=== PATIENT | male | born 1975 | race Caucasian/White ===

== ENCOUNTER 2018-12-02 19:18 | Emergency (ER) | payer OTHER ==
[~2018-12-02] VITALS: Ht 182.8 cm; Wt 90.7 kg
--- NOTE | ~2018-12-02 | EKG ---
[place], [place] ELECTROCARDIOGRAM REPORT NAME: JORDAN ROSARIO UNIT #: [id number] ROOM: [facility] BIRTHDATE: [birth year] [facility] Test Date: 2018-12-02 Test Time: 19:30:16 Pat Name: JORDAN ROSARIO Department: Room: Gender: Director Social Welfare: Althea Zuluaga : 1975 Requested By: ALIREZA GOMES Order Number: [id number] Reading MD: Mirian Verma MD Measurements Intervals [place] Rate: 90 P: 45 OK: 145 QRS: 5 QRSD: 87 T: 28 QT: 340 QTc: 416 Interpretive Statements Sinus rhythm Normal ECG No previous ECG available for comparison Electronically Signed On 12-03-2018 7:51:31 PST by Mirian Verma MD CM:EKGRPT:ELECTROCARDIOGRAM REPORT [id number] ALIREZA PÉREZ DRAFT REPORT ALIREZA GOMES DO
[2018-12-02 19:42] LABS: BASO # 0.1 10*3/uL (0.0-0.1); BASO % 0.6 % (0.0-1.0); EOS # 0.1 10*3/uL (0.0-0.4); EOS % 0.8 % (1.0-4.0); HEMATOCRIT 46.9 % (42.0-52.0); HEMOGLOBIN 15.6 g/dl (14.0-18.0); LYMPH # 2.4 10*3/uL (1.3-4.4); LYMPH % 16.6 % (27.0-41.0); MEAN CELL VOLUME 87.2 fl (80.0-94.0); MEAN CORPUSCULAR HGB CONC 33.3 g/dl (33.0-37.0); MEAN PLATELET VOLUME 8.3 fl (9.6-12.3); MONO % 6.8 % (3.0-9.0); NEUT % 74.9 % (47.0-73.0); PLATELET COUNT AUTOMATED 224 10*3/uL (130-400); RED BLOOD COUNT 5.38 10*6/uL (4.50-5.90); RED CELL DISTRI WIDTH 13.6 % (0-14.5); WHITE BLOOD COUNT 14.7 10*3/uL (4.8-10.8)
[2018-12-02 19:52] LABS: ACT PARTIAL THROMBO TIME 21.6 SECONDS (20.8-31.5); INTERNATIONAL NORM RATIO 1.1 (2.0-3.5)
[2018-12-02 20:00] LABS: ALBUMIN 3.7 gm/dl (3.1-4.5); ALKALINE PHOSPHATASE 94 U/L (45-117); BUN 9 mg/dl (7-24); CHLORIDE 105 mmol/L (98-107); CREATININE 0.95 mg/dL (0.70-1.30); POTASSIUM 3.9 mmol/L (3.5-5.1); SGOT/AST 16 IU/L (3-35); SGPT/ALT 26 U/L (12-78); SODIUM 142 mmol/L (136-145); TOTAL PROTEIN 7.8 gm/dL (6.4-8.2); TROPONIN I < 0.015 ng/ml (<0.045)
== END 2018-12-02 21:28 | disposition home or self-care (01) ==
LOC: ED 19:18
PROVIDERS: Student in an Organized Health Care Education/Training Program
DX: R11.10 Vomiting, unspecified (principal); Z88.0 Allergy status to penicillin